=== PATIENT | male | born 1985 | race Caucasian/White ===

== ENCOUNTER 2021-04-17 22:41 | Emergency (ER) | payer MEDICAID ==
--- NOTE | 2021-04-17 23:12 | ED Physician Documentation ---
History of Present Illness - Stated complaint Stated Complaint: MALE - Chief complaint Chief Complaint: Abd Pain - History obtained from History obtained from: Patient - Additonal information Additional information: 36-year-old man with history of right inguinal hernia Presents with left-sided groin pain for the past 2 days when listening a car tire, sudden onset, constant, associated with bilateral testicular swelling that is worse on the left versus the right. Denies abdominal pain, fever, diarrhea. Denies abnormal penile discharge. Does endorse some mild dysuria. He has had UTIs in the past and recently engaged in anal sex with his partner. Review of Systems Constitutional: denies: Fever : reports: Dysuria, Testicular pain, Testicular mass PD PAST MEDICAL HISTORY - Past Medical History GI: Ulcers - Past Surgical History Past Surgical History: No HEENT: Other - Present Medications Home Medications: Ambulatory Orders Medication Instructions Recorded Confirmed FLUoxetine [PROzac] 40 mg PO DAILY 06/17/15 06/17/15 Famotidine [Pepcid] 20 mg PO BID #60 tablet 06/17/15 Omeprazole [PriLOSEC] 20 mg PO DAILY 06/17/15 06/17/15 Omeprazole [Prilosec] 20 mg PO DAILY #30 capsule. 06/17/15 raNITIdine [Zantac] 300 mg PO DAILY 06/17/15 06/17/15 levoFLOXacin [Levofloxacin] 500 mg PO QDAC #10 tablet 04/18/21 - Allergies Allergies/Adverse Reactions: Allergies Allergy/AdvReac Type Severity Reaction Status Date / Time No Known Drug Allergies Allergy Verified 04/17/21 22:45 - Social History Does the pt smoke?: Yes Smoking Status: Current every day smoker Does the pt drink ETOH?: No Does the pt have substance abuse?: No - Immunizations Immunizations are current?: Yes Immunizations: Other immun not current - POLST Patient has POLST: No PD ED PE NORMAL - Vitals Vital signs reviewed: Yes - General General: Alert and oriented X 3, No acute distress, Well developed/nourished - HEENT HEENT: Atraumatic, PERRL, EOMI - Male 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 L hemiscrotum swelling>R) - Derm Derm: Normal color, Warm and dry - Extremities Extremities: No deformity - Neuro Neuro: Alert and oriented X 3 Results - Vitals Vitals: Vital Signs - 24 hr 04/17/21 04/18/21 04/18/21 22:45 01:19 PDT 01:48 PST Temperature 36.5 C Heart Rate 120 H 114 H 109 H Respiratory 16 18 18 Rate Blood Pressure 111/75 104/62 109/74 O2 Saturation 100 100 100 Oxygen O2 Source Room air - Labs Labs: Laboratory Tests 04/17/21 04/17/21 23:22 23:22 Urine Color YELLOW Urine Clarity CLEAR Urine pH 5.0 Ur Specific [place] >=1.030 H Urine Protein 30 H Urine Glucose (UA) NEGATIVE Urine Ketones NEGATIVE Urine Occult Blood SMALL H Urine Nitrite NEGATIVE Urine Bilirubin NEGATIVE Urine Urobilinogen 0.2 (NORMAL) Ur Leukocyte Esterase TRACE H Urine RBC 6-10 H Urine WBC 6-10 H Ur Squamous Epith Cells RARE Squamous Urine Bacteria Few Urine Culture Comments INDICATED Chlam trachomat DNA PCR POSITIVE A N.gonorrhoeae DNA (PCR) NEGATIVE T. vaginalis (PCR) TNP PD MEDICAL DECISION MAKING - ED course ED course: Patient declined pain meds. found to have nonperistalsing bowel on ultrasound of the left testicle c/w indirect inguinal hernia. Dr. Zheng saw the patient in the ED and was able to reduce it. recommends outpatient follow up after a full course of antibiotic treatment for concurrent orchitis/epididymitis. I advised the patient he will need to bring his significant other in to be treated with antibiotics however she never arrived. I then called him back after discharge to disclose the +chlamydia result but none of the numbers he gave us work. He himself at least was given treatment for STI and referral to surgery clinic. return precautions provided. Departure - Departure Disposition: 01 Home, Self Care Clinical Impression: Orchitis and epididymitis, Inguinal hernia Condition: Stable Instructions: ED Hernia Inguinal, ED Orchitis Follow-Up: Quinn Zheng MD [Provider Admit Priv/Credential] - Prescriptions: levoFLOXacin [Levofloxacin] 500 mg PO QDAC #10 tablet Comments: You were seen in the emergency department for testicular pain.Take your antibiotics as prescribed and follow-up with surgery for inguinal hernia repair in 1 week. Return to the emergency department if you have any new or worsening symptoms or other concerns. Discharge Date/Time: 04/18/21 01:57 PST
[2021-04-17 23:30] LABS: BILIRUBIN,URINE NEGATIVE (NEGATIVE); GLUCOSE, URINE (UA) NEGATIVE (NEGATIVE); KETONES,URINE (UA) NEGATIVE (NEGATIVE); LEUKOCYTE ESTERASE, URINE TRACE (NEGATIVE); NITRITE,URINE NEGATIVE (NEGATIVE); OCCULT BLOOD,URINE SMALL (NEGATIVE); PROTEIN,URINE 30 mg/dL (NEGATIVE); UROBILINOGEN,URINE 0.2 (NORMAL) E.U./dL (NORMAL)
[2021-04-17 23:41] LABS: CLARITY,URINE CLEAR (CLEAR)
[2021-04-17 23:42] LABS: BACTERIA,URINE Few /HPF (None Seen); SQUAMOUS EPITHELIAL CELL,UR RARE Squamous (<= Few)
--- NOTE | 2021-04-18 01:06 | Ultrasound Report ---
PROCEDURE: Testicle w/Doppler INDICATIONS: L testicular pain X 2 days, swelling, worsew/cough TECHNIQUE: Real-time scanning was performed of the scrotum and testicles, with image documentation. Color and p ulse Doppler interrogation was performed of both testicles. COMPARISON: None. FINDINGS: Right: Testicle is normal in size at 5.4 x 2.4 x 3.0 cm, and homogenous in echotexture. Epididymis is normal in overall size and morphology. No hydrocele or varicoceles. Overlying scrotal skin is no rmal in thickness. Epididymal cyst noted measuring 1.3 x 3.7 cm Left: Testicle is normal in size at 4.5 x 2.8 x 2.9 cm, and homogeneous in echotexture. Epididymis is normal in overall size and morphology. No hydrocele or varicoceles. Overlying scrotal skin is no rmal in thickness. Doppler: Color and pulse Doppler demonstrate normal and symmetric arterial flow in both testicles. There is a left inguinal hernia probably containing nonperistalsing bowel extending into the scrotum. IMPRESSION: 1. Left inguinal hernia probably containing nonperistalsing bowel extending into the scrotum. Conside r contrast CT correlation. 2. Unremarkable testes without evidence of torsion Reviewed by: Eric Taylor MD on 04/18/2021 1:05 AM [facility] Approved by: Eric Taylor MD on 04/18/2021 1:05 AM [facility] Station ID: [id number]
[2021-04-18] MEDS ORDERED: cefTRIAXone 250 MG VIAL IM ONE (01:26)
[2021-04-18] MEDS ORDERED: LIDOCAINE 1% 2 ML VIAL MC ONE (01:26)
[2021-04-18] MEDS ORDERED: levoFLOXacin 250 MG TABLET PO STA (01:27)
[2021-04-18] MEDS ORDERED: oxyCODONE/ACET 5/325 Prepack 4 PO STA (01:30)
--- NOTE | 2021-04-18 01:30 | CONSULTATION NOTE ---
Surgery Consult - Consult Date Consult Date: 04/18/21 Requesting Provider: Luz Marina - [place] Meds/Allergies Home Medications: Patient History Medication Instructions Recorded Confirmed FLUoxetine [PROzac] 40 mg PO DAILY 06/17/15 06/17/15 Omeprazole [PriLOSEC] 20 mg PO DAILY 06/17/15 06/17/15 raNITIdine [Zantac] 300 mg PO DAILY 06/17/15 06/17/15 Allergies/Adverse Reactions: Allergies Allergy/AdvReac Type Severity Reaction Status Date / Time No Known Drug Allergies Allergy Verified 04/17/21 22:45 - Vital Signs Vital Signs: Last Vital Signs Temp 36.5 C 04/17/21 22:45 Pulse 114 H 04/18/21 01:19 PDT Resp 18 04/18/21 01:19 PDT BP 104/62 04/18/21 01:19 PDT Pulse Ox 100 04/18/21 01:19 PDT - Consultation Note Consultation Note: 36 yo male comes to ER with complaint of pain in left testicle and swelling of scrotum. He first noticed the swelling two days ago after lifting a tire- he felt a ripping sensation. He also had anal sex with his girlfriend around the same time. Over the past two days he has noticed increased pain and swelling in the left testicle and also the scrotum. No vomiting or abdominal pain. He was placed into [place] position prior to my arrival in the ER, and noted that the swelling in his scrotum had resolved, but the left testicle was still very tender and felt larger than the right. PMH: UTI Exam: Afebrile. Patient anxious. Abdomen: soft, scaphoid, nontender Scrotum: no herniated bowel extending into scrotum on exam. Left and right testes tender, left > right. Left testis palpably larger than the right testis and exquisitely tender to touch. Right testis also slightly tender. Scrotal ultrasound done before hernia self-reduced read as left inguinal hernia, possible nonperistalsing bowel in scrotum. Testes of same size, normal vascularity. Assess: 1- Left inguinal hernia, reducible, extends into scrotum as demonstrated by US exam. Hernia self-reduced prior to my arrival in ER. 2- Probable epididymitis/orchitis with very tender testes, L>R. Recommend: As discussed with Dr Raza, the patient should have cultures done for GC and aerobe/anaerobe for possible epididymitis/orchitis and should be treated empirically with antibiotics. He should be referred to the Surgery clinic for elective left inguinal hernia repair after the infection has resolved. The patient was advised to take the antibiotics prescribed for the epididymitis/orchitis and avoid any heavy lifting or straining and no sex until after the hernia is repaired.
[2021-04-18] MEDS ORDERED: LIDOCAINE 1% 2 ML VIAL ONE (01:40)
[2021-04-18] MEDS ORDERED: levoFLOXacin 250 MG TABLET ONE (01:41)
[2021-04-18] MEDS ORDERED: cefTRIAXone 250 MG VIAL ONE (01:41)
[2021-04-18] MEDS ORDERED: oxyCODONE/ACET 5/325 Prepack 4 PO ONE (01:41)
[2021-04-18 01:50] VITALS: BP 109/74
[2021-04-18 02:15] LABS: CHLAMYDIA TRACHOMATIS DNA POSITIVE (NEGATIVE); NEISSERIA GONORRHOEAE DNA NEGATIVE (NEGATIVE)
== END 2021-04-18 01:57 | disposition home or self-care (01) ==
LOC: ED 22:41
DX: N45.3 Epididymo-orchitis (principal); K40.90 Unilateral inguinal hernia, without obstruction or gangrene, not specified as recurrent; F17.200 Nicotine dependence, unspecified, uncomplicated
CPT/HCPCS: 76870; 81001; 87086; 87491; 87591; 93975; 96372; 99283; 99284; A9270; 87661

== ENCOUNTER 2021-07-30 14:30 | Outpatient (CLI) | payer OTHER ==
[2021-07-30 15:37] LABS: BILIRUBIN,URINE NEGATIVE (NEGATIVE); GLUCOSE, URINE (UA) NEGATIVE (NEGATIVE); KETONES,URINE (UA) NEGATIVE (NEGATIVE); LEUKOCYTE ESTERASE, URINE NEGATIVE (NEGATIVE); NITRITE,URINE NEGATIVE (NEGATIVE); OCCULT BLOOD,URINE NEGATIVE (NEGATIVE); PROTEIN,URINE NEGATIVE (NEGATIVE); UROBILINOGEN,URINE 0.2 (NORMAL) E.U./dL (NORMAL)
[2021-07-30 16:06] LABS: CLARITY,URINE CLEAR (CLEAR)
[2021-07-30 17:30] LABS: RBC,URINE None Seen /HPF (0-5); WBC,URINE 0-3 /HPF (0-3)
[2021-07-30 17:31] LABS: BACTERIA,URINE Few /HPF (None Seen); SQUAMOUS EPITHELIAL CELL,UR RARE Squamous (<= Few)
== END 2021-07-30 14:31 | disposition home or self-care (01) ==
LOC: LAB.R 14:30
PROVIDERS: ATTEND Registered Nurse
DX: N39.0 Urinary tract infection, site not specified (principal)
CPT/HCPCS: 81001; 87086